=== PATIENT | female | born 1985 | race Caucasian/White ===

== ENCOUNTER → 2022-04-01 | Outpatient (CLI) | payer BC, MEDICAID, OTHER ==
--- NOTE | 2022-04-01 17:30 | Diagnostic Imaging Report ---
INDICATION: Anatomic survey. COMPARISON: None. TECHNIQUE: Multiple real-time grayscale images were obtained over the gravid uterus. FINDINGS: There is a single live intrauterine gestation in breech presentation. The cervix measures 4.3 cm with no evidence of funneling or endocervical fluid. The placenta is anterior without evidence of previa. A placental horn is noted. The nose and lips are seen. The heart rate measures 149 BPM. The bladder is seen. A three-vessel cord is demonstrated with two umbilical arteries. The cord insertion is seen. The stomach is seen. The cerebellum is seen. Cisterna magna and lateral ventricles are seen. The kidneys are seen. Four-chamber heart is seen. The diaphragm is seen. The right and left ventricular outflow tracts are seen. The upper and lower spine is seen. Measurements are given below. The amniotic fluid is subjectively normal. A vertical pocket is seen which measures 5.2 cm. Biometrical measurements are as follows: Biparietal 6.15 cm, age 25 weeks 0 days. Head circumference 22.89 cm, age 25 weeks 0 days. Abdominal circumference 19.85 cm, age 24 weeks 4 days. Femur length 4.28 cm, age 24 weeks 0 days. Sonographic estimate age: 24 weeks 5 days. Sonographic estimated date of delivery: 07/17/2022. Estimated Weight: 690 gm (+/- 101 gm). LMP percentile: >98%. heart rate: 149 beats per minute. number: 1 of 1. IMPRESSION: 1. Single live intrauterine gestation measuring at 24 weeks and 5 days, which is more than 2 weeks larger than the clinical dates, with estimated weight greater than the 98th percentile. Consider redating. 2. Anatomic survey. No abnormality is seen. 3. Breech presentation. Dictated by: Dictated on workstation # [id number]
== END ==
LOC: RAD 12:00
PROVIDERS: ATTEND Obstetrics & Gynecology
DX: O32.3XX0 Maternal care for face, brow and chin presentation, not applicable or unspecified (principal); Z3A.24 24 weeks gestation of pregnancy
CPT/HCPCS: 76805